=== PATIENT | male | born 1995 | race Caucasian/White ===

== ENCOUNTER 2016-10-19 03:00 | Emergency (ER) | payer SELFPAY ==
[~2016-10-19] VITALS: Ht 167.6 cm; Wt 87.0 kg
[~2016-10-19 03:00] MED LIST: ACET325T33 PO; AUG875 PO; IBUP-1542 PO; ONDA4TAB35 PO
[2016-10-19 03:11] VITALS: Ht 167.6 cm; Wt 87.0 kg
[2016-10-19] MEDS ORDERED: DIPHTH/TET/ACEL PERTUSS (ADULT) 0.5 ML VIAL IM* ONE (05:30)
[2016-10-19] MEDS ORDERED: LIDOCAINE 1% (MDV) 20 ML INJ SC ONE (05:30)
[2016-10-19] MEDS ORDERED: HYDROCODONE/APAP (5/325) TAB PO ONE (05:30)
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
[2016-10-19] MEDS ORDERED: CEPH-443 PO (06:50)
[2016-10-19] MEDS ORDERED: NAPR-260 PO (06:50)
[2016-10-19] MEDS ORDERED: TRAM50TA2 PO (06:51)
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
== END 2016-10-19 07:45 | disposition home or self-care (01) ==
LOC: FTE 03:00
DX: S61.511A Laceration without foreign body of right wrist, initial encounter (principal); J45.909 Unspecified asthma, uncomplicated; V49.40XA Driver injured in collision with unspecified motor vehicles in traffic accident, initial encounter; Z23 Encounter for immunization
CPT/HCPCS: 73140; 90471; 90715

== ENCOUNTER 2019-01-31 02:09 | Emergency (ER) | payer MEDICAID ==
[~2019-01-31] VITALS: Ht 167.6 cm; Wt 102.9 kg
[~2019-01-31 02:09] MED LIST changes: +CEPH-443 PO; +NAPR-985 PO; +TRAM50TA2 PO
[2019-01-31 02:19] VITALS: Ht 167.6 cm; Wt 102.9 kg
[2019-01-31] MEDS ORDERED: ALBUTEROL 0.083% (NEB) 2.5 MG/3 ML AMP HHN STA (03:07)
[2019-01-31] MEDS ORDERED: ONDANSETRON (ODT) 4 MG TAB ODT STA (03:07)
--- NOTE | 2019-01-31 03:07 | ERD ---
ER Documentation Chief Complaint Chief Complaint C/O EPIGASTRIC PAIN AND SOB X3 DAYS HPI This is a 23-year-old male presents to emerge department with complaints of bilateral lower chest discomfort, epigastric discomfort for about 3 days. Also complains of shortness of breath. Stated that he has this same symptoms before and was diagnosed with pneumonia. Denies headache, head injury, loss of consciousness, dizziness, neck pain, neck stiffness, throat pain, difficulty swallowing, difficulty breathing lying flat, shoulder pain, chest pain, back pain, nausea, vomiting, constipation, diarrhea, urinary symptoms, loss of bowel and bladder control, trauma, injury, falls, difficulty walking due to pain, numbness or tingling sensation, calf pain, recent travel, recent major surgery in the last 3 weeks, calf pain, recent long travel, recent exposure to any illness, recent antibiotic use in the last 3 months, fever, chills, seizures. Past medical history: Surgical history: Appendectomy. Social: Denies smoking, use of alcoholic beverages, use of illegal drugs. ROS All systems reviewed and are negative except as per history of present illness. Medications Home Meds Active Scripts Benzonatate* (Tessalon Perle*) 100 Mg Capsule, 100 MG PO Q8H PRN for COUGH, #20 CAP Prov:PUJA LATHAM 01/31/19 Prednisone* (Prednisone*) 20 Mg Tab, 60 MG PO DAILY for 4 Days, TAB Prov:PUJA LATHAM 01/31/19 Albuterol Sulfate* (Proair HFA*) 8.5 Gm Hfa.aer.ad, 2 PUFF INH Q4 PRN for WHEEZING, #1 INHALER Prov:PUJA LATHAM 01/31/19 Ondansetron Hcl* (Zofran*) 4 Mg Tablet, 4 MG PO Q8H PRN for NAUSEA AND/OR VOMIT ING, #30 TAB Prov:PUJA LATHAM 01/31/19 Ibuprofen* (Motrin*) 800 Mg Tab, 800 MG PO Q6H PRN for PAIN AND OR ELEVATED TEMP, #30 TAB Prov:PUJA LATHAM 01/31/19 Tramadol HCl (Tramadol HCl) 50 Mg Tablet, 50 MG PO Q4 PRN for PAIN, #20 TAB Prov:JOHN MOJICA PA-C 10/19/16 Naproxen* (Naprosyn*) 500 Mg Tablet, 500 MG PO BID PRN for PAIN AND/OR INFLAMMATION, #30 TAB Prov:JOHN MOJICA PA-C 10/19/16 Cephalexin* (Keflex*) 500 Mg Capsule, 500 MG PO QID for 7 Days, CAP Prov:JOHN MOJICA PA-C 10/19/16 Acetaminophen* (Tylenol*) 325 Mg Tablet, 2 TAB PO Q8 PRN for PAIN AND OR EL EVATED TEMP, #20 TAB Prov:JOHANA HOOK PA-C 03/06/16 Ibuprofen* (Motrin*) 600 Mg Tab, 600 MG PO BID, #30 TAB 0 Refills Prov:ELMER ZAZUETA PA-C 08/31/15 Ondansetron Hcl* (Zofran* ODT) 4 mg -ODT Tab.disper, 4 MG PO DAILY PRN for NAUSEA AND/OR VOMITING, #10 TAB 0 Refills Prov:ELMER ZAZUETA PA-C 08/31/15 Ondansetron Hcl* (Zofran* ODT) 4 mg -ODT Tab.disper, 4 MG PO Q6 PRN for NAUSEA AND/OR VOMITING, #10 TAB Prov:BRAYAN SORIANO NP 08/26/15 Amoxicillin-Clavulanate K* (Augmentin*) 875 Mg Tab, 875 MG PO BID for 10 Days Prov:MICHAEL PANIAGUA NP 02/14/15 Allergies Allergies: Coded Allergies: No Known Allergy (Unverified , 08/31/15) PMhx/Soc History of Surgery: No Anesthesia Reaction: No Hx Neurological Disorder: No Hx Respiratory Disorders: Yes (asthma) Hx Cardiac Disorders: No Hx Psychiatric Problems: No Hx Miscellaneous Medical Probl: No Hx Alcohol Use: No Hx Substance Use: No Hx Tobacco Use: No Smoking Status: Never smoker Physical Exam Vitals Vital Signs Date Temp Pulse Resp B/P (MAP) Pulse Ox O2 O2 Flow FiO2 Time Delivery Rate 01/31/19 98.2 110 18 106/65 96 Room Air 06:38 (79) 01/31/19 108 20 96 21 03:34 01/31/19 99.1 100 21 153/72 96 02:19 (99) Physical Exam Head: Atraumatic Eyes: Normal Conjunctiva ENT: Normal External Ears, Nose and Mouth. Bilateral ears: TMs are not erythematous. No bleeding. No discharge. No hearing loss. No mastoid tenderness. Nose: There is no frontal or maxillary sinus tenderness palpation. Throat: Uvula is in midline and nondisplaced. Tonsils are +1 bilaterally without redness and without exudates. Tolerating secretions. Patent airway. Speaks full and clear sentences. No tripoding. Neck: Full range of motion. No meningismus. No nuchal rigidity. No signs of meningeal irritation. Resp: Wheezing bilaterally. No accessory muscle use in breathing. Cardio: Regular rate and rhythm, no murmurs Abd: Soft, non tender, non distended. Normal bowel sounds. Has right upper abdominal tenderness to light and to palpation. Negative Deborah sign (heel jar test). Negative psoas sign. Negative Rovsing sign. No CVA tenderness. Able to jump twice without developing lower abdominal pain. Skin: No petechiae or rashes. Color appears normal for ethnicity. No skin tenting. No signs of severe dehydration. Back: No midline or flank tenderness Ext: No cyanosis, or edema Neur: Awake and alert. No neurological deficits. Psych: Normal Mood and Affect Result Diagram: 01/31/1942801/31/19428 Results 24 hrs Laboratory Tests Test 01/31/19 04:29 White Blood Count 12.2 10^3/ul Red Blood Count 5.56 10^6/ul Hemoglobin 14.1 g/dl Hematocrit 42.6 % Mean Corpuscular Volume 76.6 fl Mean Corpuscular Hemoglobin 25.4 pg Mean Corpuscular Hemoglobin Concent 33.1 g/dl Red Cell Distribution Width 12.3 % Platelet Count 230 10^3/UL Mean Platelet Volume 9.6 fl Immature Granulocytes % 0.200 % Neutrophils % 72.9 % Lymphocytes % 17.4 % Monocytes % 6.3 % Eosinophils % 2.9 % Basophils % 0.3 % Nucleated Red Blood Cells % 0.0 /100WBC Immature Granulocytes # 0.030 10^3/ul Neutrophils # 8.9 10^3/ul Lymphocytes # 2.1 10^3/ul Monocytes # 0.8 10^3/ul Eosinophils # 0.4 10^3/ul Basophils # 0.0 10^3/ul Nucleated Red Blood Cells # 0.0 10^3/ul Sodium Level 143 mmol/L Potassium Level 4.1 mmol/L Chloride Level 105 mmol/L Carbon Dioxide Level 27 mmol/L Anion Gap 11 Blood Urea Nitrogen 11 mg/dl Creatinine 0.91 mg/dl Est Glomerular Filtrat Rate mL/min > 60 mL/min Glucose Level 109 mg/dl Calcium Level 10.0 mg/dl Total Bilirubin 0.7 mg/dl Direct Bilirubin 0.00 mg/dl Indirect Bilirubin 0.7 mg/dl Aspartate Amino Transf (AST/SGOT) 53 IU/L Alanine Aminotransferase (ALT/SGPT) 118 IU/L Alkaline Phosphatase 113 IU/L Total Protein 8.4 g/dl Albumin 4.7 g/dl Globulin 3.70 g/dl Albumin/Globulin Ratio 1.27 Amylase Level 69 U/L Lipase 53 U/L Current Medications Medications Dose Sig/Tyler Start Time Status Last (Trade) Ordered Route PRN Stop Time Admin Dose Reason Admin 125 mg ONCE ONCE 01/31/19 DC 01/31/19 Methylprednis IM 03:30 04:54 olone Sodium 01/31/19 03:31 Succinate (Solu-Medrol) Albuterol 5 mg ONCE STAT 01/31/19 DC 01/31/19 (Proventil HHN 03:07 03:33 0.083% (Neb)) 01/31/19 03:10 Ipratropium 0.5 mg ONCE ONCE 01/31/19 DC 01/31/19 Hessel HHN 03:30 03:33 (Atrovent 01/31/19 03:31 0.02% (Neb)) Ondansetron 4 mg ONCE STAT 01/31/19 DC 01/31/19 HCl (Zofran ODT 03:07 04:54 Odt) 01/31/19 03:10 Ibuprofen 800 mg ONCE ONCE 01/31/19 DC 01/31/19 (Motrin) PO 03:30 04:53 01/31/19 03:31 650 mg ONCE ONCE 01/31/19 DC 01/31/19 Acetaminophen PO 03:30 04:53 (Tylenol 01/31/19 03:31 Tab) Sodium 1,000 ml @ Q1H ONCE 01/31/19 DC 01/31/19 Chloride 1,000 mls/hr IV 04:30 04:54 01/31/19 05:29 Procedures/MDM Diagnostic tests: Blood works: Reviewed. Chest x-ray: No evidence for active cardiopulmonary disease. Ultrasound of the gallbladder: No evidence for active cardiopulmonary disease. Treatment: Albuterol and Atrovent breathing treatment. Solu-Medrol IM. Zofran p.o. Re-evaluation: No accessory muscle use in breathing. Speaks full and clear sentences. No tripoding. Negative [place] sign. Negative [place] sign (heel jar test). Negative psoas sign. Negative Rovsing sign. No CVA tenderness. Stated that he feels much better at this time and that he is ready to go home. Differential diagnosis I have low suspicion for sepsis, pneumonia, bronchospasm, pancreatitis, cholecystitis, diverticulitis, bowel obstruction, nephrolithiasis, pyelonephritis, obstructing kidney stones, septic stone. Final diagnosis: Wheezing. Abdominal pain. Prescription: Prednisone. Tessalon Perles. Pro-air. Zofran. Motrin. Follow-up with PCP in the next 24-48 hours. Come back here in the emergency department for any new symptoms or any worsening symptoms. All questions and concerns were answered. Patient and family members verbalized understanding and agreed with plan of care. Hemodynamically stable on discharge. Departure Diagnosis: Primary Impression: Abdominal pain Additional Impressions: Wheezing Fatty liver Condition: Stable Additional Instructions: Follow-up with PCP in the next 24-48 hours. Come back here in the emergency department for any new symptoms or any worsening symptoms. PUJA LATHAM Jan 31, 2019 03:07
[2019-01-31] MEDS ORDERED: METHYLPREDNISOLONE 125 MG INJ IM ONE (03:30)
[2019-01-31] MEDS ORDERED: IBUPROFEN 800 MG TAB PO ONE (03:30)
[2019-01-31] MEDS ORDERED: ACETAMINOPHEN 325 MG TAB PO ONE (03:30)
[2019-01-31] MEDS ORDERED: IPRATROPIUM (NEB) 0.5 MG/2.5 ML AMP HHN ONE (03:30)
[2019-01-31] MEDS ORDERED: SOD CHLORIDE 0.9% 1,000 ML IV ONE (04:30)
[2019-01-31] MEDS ORDERED: IBUP800T48 PO (06:19)
[2019-01-31] MEDS ORDERED: ONDA4TAB8 PO (06:19)
[2019-01-31] MEDS ORDERED: BENZ-6 PO (06:20)
[2019-01-31] MEDS ORDERED: PRED20TA PO (06:20)
[2019-01-31] MEDS ORDERED: ALBU8.5H8 INH (06:20)
[2019-01-31 06:38] VITALS: BP 106/65; PULSE 110; RESP 18
== END 2019-01-31 06:39 | disposition home or self-care (01) ==
LOC: FTE 02:09
DX: K76.0 Fatty (change of) liver, not elsewhere classified (principal); J45.901 Unspecified asthma with (acute) exacerbation
CPT/HCPCS: 36415; 71046; 76705; 80053; 82150; 83690; 85025; 94664; 96372; J2930; J7030; Z7502; Z7610